=== PATIENT | male | born 1950 | race Caucasian/White ===

== ENCOUNTER 2016-09-18 10:51 | Emergency (ER) | payer OTHER, MEDICARE ==
[~2016-09-18 10:51] MED LIST: KEFLEX500 MG PO
[2016-09-18] MEDS ORDERED: COUMADIN1 M1 PO (10:57)
[2016-09-18] MEDS ORDERED: CRESTOR20 M1 PO (10:59)
[2016-09-18] MEDS ORDERED: TRAMADOL HCL50 MG PO (10:59)
[2016-09-18] MEDS ORDERED: ALLOPURINOL100 MG PO (11:00)
[2016-09-18] MEDS ORDERED: LISINOPRIL20 MG PO (11:00)
[2016-09-18] MEDS ORDERED: COREG12.5 M1 PO (11:00)
[2016-09-18] MEDS ORDERED: Lasix80 MG PO (11:00)
[2016-09-18] MEDS ORDERED: LANTUS100 U/ML SC (11:01)
[2016-09-18] MEDS ORDERED: PROVENTIL0.09 MG/A1 INH (11:01)
[2016-09-18] MEDS ORDERED: CALCIUM500 M1 PO (11:02)
== END 2016-09-18 14:42 | disposition home or self-care (01) ==
LOC: ED 10:51
DX: M25.562 Pain in left knee (principal); Z79.02 Long term (current) use of antithrombotics/antiplatelets; Z79.01 Long term (current) use of anticoagulants; Z79.899 Other long term (current) drug therapy

== ENCOUNTER → 2021-06-08 | Outpatient (CLI) | payer MEDICARE ==
[~2021-06-08] MED LIST changes: +ALLOPURINOL100 MG PO; +CALCIUM500 M1 PO; +COREG12.5 M1 PO; +COUMADIN1 M1 PO; +CRESTOR20 M1 PO; +LANTUS100 U/ML SC; +LISINOPRIL20 MG PO; +Lasix80 MG PO; +PROVENTIL0.09 MG/A1 INH; +TRAMADOL HCL50 MG PO
== END | disposition home or self-care (01) ==
LOC: US 08:02
PROVIDERS: ATTEND Internal Medicine Interventional Cardiology
DX: I65.23 Occlusion and stenosis of bilateral carotid arteries (principal); I10 Essential (primary) hypertension; E78.2 Mixed hyperlipidemia

== ENCOUNTER → 2022-07-01 | Outpatient (CLI) | payer MEDICARE | END | disposition home or self-care (01) | LOC: CARD 11:56 | PROVIDERS: ATTEND Internal Medicine Interventional Cardiology | DX: I42.8 Other cardiomyopathies (principal); I51.7 Cardiomegaly; I42.0 Dilated cardiomyopathy; I48.92 Unspecified atrial flutter; I50.32 Chronic diastolic (congestive) heart failure ==

== ENCOUNTER 2025-03-12 10:40 | Emergency (ER) | payer MEDICARE ==
[~2025-03-12] VITALS: Wt 113.4 kg
[2025-03-12] MEDS ORDERED: Racepinephrine Hydrochloride 0.5 ML AMP NEB ONE (10:55)
[2025-03-12] MEDS ORDERED: Racepinephrine Hydrochloride 0.5 ML AMP ONE (11:15)
[2025-03-12] MEDS ORDERED: SODIUM CHLORIDE 0.9% 3 ML AMP ONE (11:16)
[2025-03-12 11:23] LABS: BASO # 0.0 10*3/uL (0.0-0.1); BASO % 0.4 % (0.0-1.0); EOS # 0.1 10*3/uL (0.0-0.4); EOS % 1.5 % (1.0-4.0); MEAN CELL VOLUME 101.8 fl (80.0-94.0); MEAN CORPUSCULAR HGB 31.0 pg (27.0-31.0); MEAN PLATELET VOLUME 9.8 fl (9.6-12.3); MONO # 0.2 10*3/uL (0.1-1.0); MONO % 3.2 % (3.0-9.0); NEUT # 4.1 10*3/uL (2.3-7.9); NEUT % 77.1 % (47.0-73.0); NUCLEATED RED BLOOD CELL 0.0 % (0.0-0.0); NUCLEATED RED BLOOD CELL 0.0 10*3/uL (0.0-0.0); PLATELET COUNT AUTOMATED 171 10*3/uL (130-400); RED CELL DISTRI WIDTH 12.9 % (0-14.5)
[2025-03-12] MEDS ORDERED: SODIUM CHLORIDE 0.9% 1,000 ML IV ONE (11:45)
[2025-03-12 11:50] LABS: BUN 20 mg/dl (9-23); SGPT/ALT 17 U/L (5-49)
[2025-03-12] MEDS ORDERED: EPIPEN 2-P0.3 MG/0.3 IJ (14:10)
== END 2025-03-12 14:13 | disposition home or self-care (01) ==
LOC: ED 10:40
PROVIDERS: Internal Medicine
DX: T63.441A Toxic effect of venom of bees, accidental (unintentional), initial encounter (principal); T78.2XXA Anaphylactic shock, unspecified, initial encounter; L50.9 Urticaria, unspecified; X58.XXXA Exposure to other specified factors, initial encounter; Z91.030 Bee allergy status; Z79.01 Long term (current) use of anticoagulants; Z79.899 Other long term (current) drug therapy; Z79.4 Long term (current) use of insulin